=== PATIENT | female | born 2000 | race Caucasian/White ===

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

== ENCOUNTER 2022-06-13 13:34 | Emergency (ER) | payer OTHER, SELFPAY ==
--- NOTE | ~2022-06-13 | XR_ITS ---
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 Evaluate for foreign body. TECHNIQUE: 4 views COMPARISON: None FINDINGS: There is soft tissue bandage overlying the mid third digit. No radiopaque soft tissue forei gn body is detected. No fracture or dislocation, periosteal reaction or bone destruction. IMPRESSION: No fracture or dislocation or radiopaque foreign body Reviewed, dictated and finalized at location A.
[2022-06-13 14:05] VITALS: BP 134/66; PULSE 78; RESP 16; TEMP 36.4; O2SAT 99
--- NOTE | 2022-06-13 15:33 | ED.WOUNDLAC ---
HPI - Wound/Laceration General Chief Complaint: Wound/Laceration <AMY Agustin Last Filed: 06/13/22 17:37> Stated Complaint: L THIRD DIGIT LACERATION <AMY Agustin Last Filed: 06/13/22 17:37> Time Seen by Provider: 06/13/22 14:18 <AMY Agustin Last Filed: 06/13/22 17:37> Source: patient <AMY Agustin Last Filed: 06/13/22 17:37> Mode of arrival: ambulatory <AMY Agustin Last Filed: 06/13/22 17:37> Limitations: no limitations <AMY Agustin Last Filed: 06/13/22 17:37> History of Present Illness HPI narrative: Patient is a 21-year-old female who presents the ED with report of a laceration to her left third digit. 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 No other injuries. Bleeding controlled by the time of my evaluation. No numbness, tingling. Good range of motion of finger. Tetanus status up-to-date. <AMY Agustin Last Filed: 06/13/22 17:37> Related Data Allergies/Adverse Reactions: Allergies Allergy/AdvReac Type Severity Reaction Status Date / Time No Known Allergies Allergy Verified 06/13/22 15:14 <Lisy Atwood PA-C - Last Filed: 06/13/22 17:37> Review of Systems Review of Systems: CONSTITUTIONAL: Denies fever, chills, or sweats. SKIN: Reports laceration to left third digit. MUSCULOSKELETAL: Reports pain to left third digit. NEUROLOGIC: Denies tingling, numbness, or weakness. <AMY Agustin Last Filed: 06/13/22 17:37> CONSTITUTIONAL: Denies night sweats. EYES: No eye pain ENT: Denies rhinorrhea CARDIOVASCULAR: Denies palpitations RESPIRATORY: Denies hemoptysis GASTROINTESTINAL: Denies hematemesis GENITOURINARY: Denies hematuria. SKIN: Denies rash MUSCULOSKELETAL: Denies myalgia. NEUROLOGIC: Denies weakness. PSYCHIATRIC: Denies delusions <Héctor Kennedy MD - Last Filed: 06/19/22 07:44> All systems reviewed & are unremarkable except as noted in HPI and below <Lisy Atwood PA-C - Last Filed: 06/13/22 17:37> [facility] Past Medical History Medical History: Medical History (Updated 06/14/22 @ 00:00 by Desmond Daemlatrell) No pertinent past medical history <Lisy Atwood PA-C - Last Filed: 06/13/22 17:37> Surgical History Surgical History: Surgical History (Updated 06/13/22 @ 15:34 by Lisy Atwood PA-C) No pertinent past surgical history <Lisy Atwood PA-C - Last Filed: 06/13/22 17:37> Social History Social History: Social History (Updated 06/13/22 @ 15:34 by Lisy Atwood PA-C) Smoking status: Never smoker <Lisy Atwood PA-C - Last Filed: 06/13/22 17:37> Exam Narrative: GENERAL: Well appearing, obese, non-toxic, in no acute distress. HEAD: Normocephalic, atraumatic. NECK: Supple. No adenopathy, no masses. RESPIRATORY: Airway patent, respirations nonlabored. Clear to auscultation bilaterally, no rales, rhonchi, wheezing. CARDIOVASCULAR: Regular rate and rhythm without murmurs, rubs, or gallops. Radial pulses 2+ and equal bilaterally. MUSCULOSKELETAL: Moves all extremities. Strength/ROM intact without gross deformities. Sharp sensation intact to distal finger. SKIN: Warm, dry, normal color. No rashes. 1.5 cm laceration to extensor surface of left third digit, just distal to PIP joint. Bleeding controlled. NEURO: A&O X3. Speech clear. Cranial nerves II-XII grossly intact. Steady gait. No ataxic movements. PSYCHIATRIC: Appropriate mood and affect. Normal interaction. 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 I have had [id number] time with the patient. Patient presented with a minor l
--- NOTE | 2022-06-13 15:47 | PC.NURSE ---
ERPA at bedside for laceration repair.
[2022-06-13] MEDS: LIDOCAINE HCL 1% PF 30 ML VIAL 5 ML INFILTRATE (16:20)
== END 2022-06-13 16:50 | disposition home or self-care (01) ==
PROVIDERS: Emergency Provider Emergency Medicine
DX: S61.213A Laceration without foreign body of left middle finger without damage to nail, initial encounter (principal); W27.8XXA Contact with other nonpowered hand tool, initial encounter
CPT/HCPCS: 12001; 73140; 99283

== ENCOUNTER 2022-06-23 10:41 | Emergency (ER) | payer OTHER, SELFPAY ==
[2022-06-23 10:48] VITALS: BP 128/71; PULSE 86; RESP 16; TEMP 37.1; O2SAT 99
--- NOTE | 2022-06-23 10:56 | ED.WOUNDLAC ---
HPI - Wound/Laceration General Chief Complaint: Wound/Laceration Stated Complaint: stitches removal Time Seen by Provider: 06/23/22 10:44 Source: patient Mode of arrival: ambulatory Limitations: no limitations History of Present Illness HPI narrative: Mg is a 21-year-old female patient presenting to the clinic today for a suture removal. She has a well-healed laceration to the left 3rd finger. 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 She denies any pain or discomfort. She denies any fever Related Data Allergies Allergy/AdvReac Type Severity Reaction Status Date / Time No Known Allergies Allergy Verified 06/13/22 15:14 Review of Systems Review of Systems: Pertinent positives per HPI. Patient denies any fever, chills, rash, headache, visual changes, dizziness, cough, runny nose, sore throat, shortness of breath, chest pain, palpitations, nausea, vomiting, diarrhea, constipation, abdominal pain, or any urinary issues. PMFSH Past Medical History Medical History No pertinent past medical history Surgical History Surgical History No pertinent past surgical history Social History Social History Smoking status: Never smoker Comments At the time of my signature, I reviewed and agree with the nursing past medical, surgical, social, and family history. There is no relevant family history pertinent to the patient complaint. Exam Narrative: General: Well-developed, well nourished, in no apparent distress Head: Normocephalic, atraumatic. Cardio: Regular rate and rhythm, s1 and s2 normal, no murmur appreciated. Resp: Clear to auscultation bilaterally, no rhonchi, rales, wheezing or rubs. Integumentary: [place], warm, and dry, well-healed wound to the left dorsal 3rd finger just above the PIP joint. Three interrupted sutures removed and patient tolerated procedure well Course Course Emergency Course: Portions of this record may have been created with voice recognition software. Level of Care: Express Care Visit Vital Signs Vital signs: Vital Signs Temperature 37.1 C 06/23/22 10:48 Pulse Rate 86 06/23/22 10:48 Respiratory Rate 16 06/23/22 10:48 Blood Pressure 128/71 06/23/22 10:48 Pulse Oximetry 99 06/23/22 10:48 Oxygen Delivery Room Air 06/23/22 10:48 Temperature 37.1 C 06/23/22 10:48 Pulse Rate 86 06/23/22 10:48 Respiratory Rate 16 06/23/22 10:48 Blood Pressure 128/71 06/23/22 10:48 Pulse Oximetry 99 06/23/22 10:48 Oxygen Delivery Room Air 06/23/22 10:48 Vital signs reviewed Procedures Other Procedure Procedure 1: Other Procedure: well-healed wound to the left dorsal 3rd finger. Three interrupted sutures were removed using a pair of forceps and scissors. ARMANI applied after suture removal. patient tolerated procedure well MDM - Wound/Laceration MDM Narrative Medical decision making narrative: at the time of visit patient is resting comfortably on exam table. Three interrupted sutures were removed in the clinic today. No concerns. Supportive measures were discussed with the patient she voiced understanding of discharge instructions Differential Diagnosis Differential diagnosis: Likely other ( suture removal) Discharge Plan Discharge Clinical Impression: Encounter for removal of sutures Patient Disposition: Home, Self-Care Condition: Stable Instructions: Antibiotic Form, Stitches Removal (ED) Additional Instructions: Keep area clean and dry 3 sutures removed in the clinic today Follow-up with your PCP as needed Follow-up/Referrals: UNKNOWN,DOCTOR [Primary Care Provider] - Time of Disposition: 11:00 Quality NIHSS Nursing Documentation ED NIHSS nursing documentation: reviewed/agree
--- NOTE | 2022-06-23 10:57 | PC.NURSE ---
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
== END 2022-06-23 11:02 | disposition home or self-care (01) ==
PROVIDERS: Emergency Provider Nurse Practitioner Family
DX: S61.213D Laceration without foreign body of left middle finger without damage to nail, subsequent encounter (principal); W26.8XXD Contact with other sharp object(s), not elsewhere classified, subsequent encounter
CPT/HCPCS: 99211; G0463

== ENCOUNTER 2023-02-05 12:01 | Emergency (ER) | payer BC, OTHER, SELFPAY ==
--- NOTE | ~2023-02-05 | XR_ITS ---
XR ankle LT min 3V DATE: 02/05/2023 13:23 INDICATION: Twisted foot stepping in hole. Lateral ankle pain. TECHNIQUE: 4 views COMPARISON: None FINDINGS: There is mild lateral soft tissue swelling. No fracture or dislocation of the ankle or disr uption of the ankle mortise is detected. IMPRESSION: Mild lateral soft tissue swelling Reviewed, dictated and finalized at location A.
[2023-02-05 12:51] VITALS: BP 144/80; PULSE 74; RESP 16; TEMP 36.8; O2SAT 100
--- NOTE | 2023-02-05 13:16 | ED.LOWEXIN ---
HPI - Extremity Injury (Lower) General Chief Complaint: Extremity Injury, Lower Stated Complaint: pain in left foot Time Seen by Provider: 02/05/23 13:12 Source: patient and RN notes reviewed Mode of arrival: ambulatory Limitations: no limitations History of Present Illness HPI Narrative: Patient presents today complaining of a left ankle pain. Yesterday she tripped and twisted her ankle. Denies numbness or tingling in the leg or foot. She is pain-free at rest, but this increases to 5/10 with weight-bearing. She has been taking Tylenol and ibuprofen without relief. Related Data Allergies Allergy/AdvReac Type Severity Reaction Status Date / Time amoxicillin [From Augmentin] Allergy Mild Rash Verified 02/05/23 12:46 clavulanic acid Allergy Mild Rash Verified 02/05/23 12:46 [From Augmentin] Review of Systems Review of Systems: CONSTITUTIONAL: Denies body aches, fever, chills, or sweats. EYES: Denies visual changes, redness, or discharge. ENT: Denies rhinorrhea, congestion, sore throat, or otalgia. CARDIOVASCULAR: Denies chest pain, palpitations, or edema. RESPIRATORY: Denies cough or dyspnea. GASTROINTESTINAL: Denies abdominal pain, nausea, vomiting, or diarrhea. GENITOURINARY: Denies dysuria or hematuria. SKIN: Denies rash, itching, or wounds. MUSCULOSKELETAL: Denies back pain, or myalgia.+ left ankle pain NEUROLOGIC: Denies headache, numbness, tingling, or weakness. PSYCH: Denies depression or anxiety. PMFSH Past Medical History Medical History No pertinent past medical history Surgical History Surgical History No pertinent past surgical history Social History Social History Smoking status: Never smoker Comments At time of signature, I have reviewed and agree with nursing past medical, surgical, social and family history unless otherwise noted. Please see nursing chart for further information. There is no relevant family history pertinent to the presenting complaint Exam Narrative: GENERAL: Well-appearing, well-nourished, and in no acute distress. HEAD: Normocephalic, atraumatic. EYES: EOMI. No redness or drainage. Conjunctivae normal. ENT: Mucous membranes pink and moist. NECK: Normal AROM. CHEST: No respiratory distress. EXTREMITIES: Left ankle: Tenderness to the lateral malleolus and the soft tissue surrounding with mild edema. No tenderness medially or anteriorly. No tenderness to the foot. Distal sensation intact. Capillary refill normal. Pedal pulse normal. Color normal. Full range of motion of the toes without pain. Pain with extension and internal and external rotation of the ankle.. SKIN: Warm, dry, no rash. Capillary refill normal. Normal skin turgor. NEURO: No focal deficits. Alert and oriented x3. Gait steady. PSYCH: Normal affect. No signs of depression or anxiety. Course Course Level of Care: Express Care Visit Vital Signs Vital signs: Vital Signs Temperature 98.3 F 02/05/23 12:51 Pulse Rate 74 02/05/23 12:51 Respiratory Rate 16 02/05/23 12:51 Blood Pressure 144/80 H 02/05/23 12:51 Pulse Oximetry 100 02/05/23 12:51 Oxygen Delivery Room Air 02/05/23 12:51 Temperature 98.3 F 02/05/23 12:51 Pulse Rate 74 02/05/23 12:51 Respiratory Rate 16 02/05/23 12:51 Blood Pressure 144/80 H 02/05/23 12:51 Pulse Oximetry 100 02/05/23 12:51 Oxygen Delivery Room Air 02/05/23 12:51 Reviewed. Pt has been instructed to follow up with her PCP regarding her elevated blood pressure today. MDM - Extremity Injury (Lower) MDM Narrative Medical decision making narrative: X-rays negative for fracture. No prescription medications indicated at this time. Anticipatory guidance given. Differential Diagnosis Differential diagnosis: Likely ankle sprain and stra
== END 2023-02-05 14:00 | disposition home or self-care (01) ==
PROVIDERS: Emergency Provider Nurse Practitioner
DX: S93.402A Sprain of unspecified ligament of left ankle, initial encounter (principal); X50.9XXA Other and unspecified overexertion or strenuous movements or postures, initial encounter
CPT/HCPCS: 73610; 99213; G0463

== ENCOUNTER 2023-10-04 13:12 | Emergency (ER) | payer OTHER, SELFPAY ==
[2023-10-04 13:25] VITALS: BP 149/75; PULSE 84; RESP 16; TEMP 37.1; O2SAT 100
--- NOTE | 2023-10-04 13:50 | ED.GENADULT ---
HPI - General Adult General Chief complaint: Urogenital-Female Stated complaint: UTI Source: patient, RN notes reviewed and old records reviewed Mode of arrival: ambulatory Limitations: no limitations History of Present Illness HPI narrative: 22-year-old female presents to [facility] with complaints burning with urination, frequency, urgency, hematuria, lower abdominal pain, back pain this started yesterday. Patient denies fevers, vomiting, or any other symptoms. Related Data Allergies Allergy/AdvReac Type Severity Reaction Status Date / Time amoxicillin [From Augmentin] Allergy Mild Rash Verified 10/04/23 13:45 clavulanic acid Allergy Mild Rash Verified 10/04/23 13:45 [From Augmentin] Review of Systems Constitutional: Constitutional: Reports no additional constitutional complaints, Denies body ache(s), Denies chills, Denies fatigue, Denies fever(s) and Denies headache(s) Eyes: Eyes: Reports no additional eye complaints and Denies blurry vision ENT: Reports system reviewed and no additional complaints, except as documented, Denies vertigo, Denies dizziness, Denies ear discharge, Denies otalgia, Denies facial pain, Denies headache(s), Denies nasal congestion, Denies nasal discharge, Denies sinus pain, Denies sinus pressure and Denies sore throat Cardiovascular: Cardiovascular: Reports no additional cardiovascular complaints, Denies chest pain, Denies chest pain at rest, Denies rapid heart rate and Denies dyspnea Respiratory: Respiratory: Reports no additional respiratory complaints, Denies chest congestion, Denies cough, Denies pain on inspiration, Denies pain with cough and Denies dyspnea Gastrointestinal: Gastrointestinal: Reports abdominal pain, Denies diarrhea, Denies nausea and Denies vomiting Genitourinary: Genitourinary: Reports as per HPI, Reports nocturia, Reports dysuria and Reports urinary urgency Musculoskeletal: Musculoskeletal: Reports back pain Integumentary/Breasts: Skin/Breast: Denies rash Neurologic: Reports system reviewed and no additional complaints, except as documented, Denies vertigo, Denies dizziness and Denies headache(s) Endocrine: Endocrine: Denies fatigue PMF Past Medical History Medical History No pertinent past medical history Surgical History Surgical History No pertinent past surgical history Family History Family History Mother Diabetes mellitus Acute myocardial infarction Grandparent Cerebrovascular accident Other Cancer Hypertension Social History Social History Smoking status: Never smoker Alcohol intake: never Substance use type: does not use Lack of Transportation: No Lack of Food: Never True Current Housing: I Have Housing Concerned About Future Housing: No Difficulty Paying Gas/Electric Bills: No Difficulty Paying for Meds: No Currently Unemployed: No Education: High School Diploma/GED Difficulty w/ Childcare or Family Care: No Living arrangements: with family 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 There is no relevant family history pertinent to the patient complaint. Exam Const: General: cooperative, healthy appearing, no acute distress and well nourished Nutritional Appearance: well nourished Orientation/consciousness: patient oriented x3 Limitations: no limitations HENMT: Head: normal to inspection and normocephalic Ears: EAC's normal and mastoids normal Face/Nose/Sinus: normal facial exam Face and sinus: normal facial exam Mouth: Yes Normal oral and palatal mucosa present, Yes oropharynx normal and Yes
== END 2023-10-04 13:56 | disposition home or self-care (01) ==
PROVIDERS: Emergency Provider Registered Nurse
DX: N30.01 Acute cystitis with hematuria (principal); B96.20 Unspecified Escherichia coli [E. coli] as the cause of diseases classified elsewhere
CPT/HCPCS: 81003; 81025; 87077; 87086; 87186; 99213; G0463

== ENCOUNTER 2023-12-03 16:49 | Emergency (ER) | payer OTHER, SELFPAY ==
--- NOTE | 2023-12-03 17:06 | ED.FEMALEGU ---
HPI - Female Genitourinary General Chief complaint: Urogenital-Female Stated complaint: urinary issue Time Seen by Provider: 12/03/23 17:10 Source: patient and RN notes reviewed Mode of arrival: ambulatory Limitations: no limitations History of Present Illness HPI Narrative: 22-year-old female presented for complaint of burning with urination, frequency and urgency over the past 2 days. Denies hematuria, nausea, vomiting, abdominal pain, flank pain, constipation, diarrhea, fevers or chills. LMP 08/2023, however she reports irregular cycles, adamantly denies concern for or STD. Related Data Allergies Allergy/AdvReac Type Severity Reaction Status Date / Time amoxicillin [From Augmentin] Allergy Mild Rash Verified 12/03/23 16:53 clavulanic acid Allergy Mild Rash Verified 12/03/23 16:53 [From Augmentin] Review of Systems Review of Systems: CONSTITUTIONAL: Denies body aches, fever, chills, or sweats. CARDIOVASCULAR: Denies chest pain, palpitations, or edema. RESPIRATORY: Denies cough or dyspnea. GASTROINTESTINAL: Denies abdominal pain, nausea, vomiting, or diarrhea. GENITOURINARY: Reports dysuria, frequency, urgency, Denies hematuria, flank pain SKIN: Denies rash, itching, or wounds. MUSCULOSKELETAL: Denies back pain or myalgia. [facility] Past Medical History Medical History No pertinent past medical history Surgical History Surgical History No pertinent past surgical history Family History Family History Mother Diabetes mellitus Acute myocardial infarction Grandparent Cerebrovascular accident Other Cancer Hypertension Social History Social History Smoking status: Never smoker Alcohol intake: never Substance use type: does not use Lack of Transportation: No Lack of Food: Never True Current Housing: I Have Housing Concerned About Future Housing: No Difficulty Paying Gas/Electric Bills: No Difficulty Paying for Meds: No Currently Unemployed: No Education: High School Diploma/GED Difficulty w/ Childcare or Family Care: No Living arrangements: with family 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 Please see nursing chart for further information. There is no relevant family history pertinent to the presenting complaint Exam Narrative: GENERAL: Well-appearing ENT: Mucous membranes pink and moist. NECK: Normal AROM. Supple. CHEST: No respiratory distress. Clear to auscultation. HEART: Regular rate and rhythm. ABDOMEN: Soft, nontender, nondistended, normal active bowel sounds. No CVA tenderness SKIN: Warm, dry, no rash. NEURO: No focal deficits. Alert and oriented x3. Gait steady. PSYCH: Normal affect. Course Course Emergency Course: Patient is aware of diagnosis, understands and agrees to treatment plan. Anticipatory guidance given. Patient agrees to follow-up as directed and is aware of reasons to seek care at the emergency department. Portions of this record may have been created with voice recognition software Level of Care: Express Care Visit Vital Signs Vital signs: Reviewed MDM - Female Genitourinary MDM Narrative Medical decision making narrative: Discussed physical exam findings And urine dip results. Advised supportive measures and signs/symptoms to go to the ER. Pt is appropriate for outpt treatment and f/u. Differential Diagnosis Differential diagnosis: Likely urinary tract infection, bacterial vaginosis, vaginitis and cystitis Discharge Plan Discharge Clinical Impression: Dysuria Patient Dispo
[2023-12-03 17:07] VITALS: BP 141/59; PULSE 70; RESP 16; TEMP 36.9; O2SAT 100
--- NOTE | 2023-12-07 13:42 | PC.NURSE ---
PT CALLED CLINIC AND REPORTS SINCE 8 AM TODAY PT HAS HAD ABD PAIN THAT MOVES INTO THE CHEST AREA. PT ASKING IF THIS IS A SIDE EFFECT OF MACROBID. PT SEEN HERE ON 12/03/23 AND HAD A URINE CULTURE WHICH HAD NO GROWTH. PT ADVISED OF LAB RESULTS AND REFERRED TO ER. PT DOES NOT HAVE A PMD. CARRIE LIU RN.
== END 2023-12-03 17:20 | disposition home or self-care (01) ==
PROVIDERS: Emergency Provider Nurse Practitioner Family
DX: R30.0 Dysuria (principal)
CPT/HCPCS: 81003; 87086; 99213; G0463

== ENCOUNTER 2024-04-25 18:15 | Emergency (ER) | payer OTHER, SELFPAY ==
--- NOTE | 2024-04-25 18:20 | ED.WOUNDLAC ---
HPI - Wound/Laceration General Chief Complaint: Wound/Laceration Stated Complaint: left index finger cut Time Seen by Provider: 04/25/24 18:20 Source: patient Mode of arrival: ambulatory Limitations: no limitations History of Present Illness HPI narrative: Chau is a 23-year-old female patient presenting to the clinic today with complaints of a cut to her left index finger. She reports this occurred just prior to arrival. 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 She reports that there was some environmental waist on a slide and exploded and cut her finger. She denies any foreign body in her finger but has a 1.5 cm lack to the volar aspect of the left index finger. Bleeding is controlled. Tetanus is unknown. Related Data Allergies Allergy/AdvReac Type Severity Reaction Status Date / Time amoxicillin [From Augmentin] Allergy Mild Rash Verified 12/03/23 16:53 clavulanic acid Allergy Mild Rash Verified 12/03/23 16:53 [From Augmentin] Review of Systems Review of Systems: Pertinent positives per HPI. Patient denies any fever, chills, rash, headache, visual changes, dizziness, cough, runny nose, sore throat, shortness of breath, chest pain, palpitations, nausea, vomiting, diarrhea, constipation, abdominal pain, or any urinary issues. [facility] Past Medical History Medical History No pertinent past medical history Surgical History Surgical History No pertinent past surgical history Family History Family History Mother Diabetes mellitus Acute myocardial infarction Grandparent Cerebrovascular accident Other Cancer Hypertension Social History Social History Smoking status: Never smoker Alcohol intake: never Substance use type: does not use Lack of Transportation: No Lack of Food: Never True Current Housing: I Have Housing Concerned About Future Housing: No Difficulty Paying Gas/Electric Bills: No Difficulty Paying for Meds: No Currently Unemployed: No Education: High School Diploma/GED Difficulty w/ Childcare or Family Care: No Living arrangements: with family 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 There is no relevant family history pertinent to the patient complaint. Exam Narrative: General: Well-developed, well nourished, in no apparent distress Head: Normocephalic, atraumatic. Cardio: Regular rate and rhythm, s1 and s2 normal, no murmur appreciated. Resp: Clear to auscultation bilaterally, no rhonchi, rales, wheezing or rubs. Integumentary: [place], warm, and dry, 1.5 cm laceration to the volar aspect of the distal left index finger, mild gaping, bleeding controlled Course Course Emergency Course: Portions of this record may have been created with voice recognition software. Level of Care: Express Care Visit Vital Signs Vital signs: Vital Signs Temperature 36.8 C 04/25/24 18:31 Pulse Rate 91 04/25/24 18:31 Respiratory Rate 15 04/25/24 18:31 Blood Pressure 142/89 H 04/25/24 18:31 Pulse Oximetry 99 04/25/24 18:31 Oxygen Delivery Room Air 04/25/24 18:31 Temperature 36.8 C 04/25/24 18:31 Pulse Rate 91 04/25/24 18:31 Respiratory Rate 15 04/25/24 18:31 Blood Pressure 142/89 H 04/25/24 18:31 Pulse Oximetry 99 04/25/24 18:31 Oxygen Delivery Room Air 04/25/24 18:31 Vital signs reviewed Procedures Laceration Laceration 1: Date: 04/25/24 Site: hand (Left index finger) Side (If applicable): left Size (cm): 1.5 Description: linear Depth: simple, sin
[2024-04-25 18:31] VITALS: BP 142/89; PULSE 91; RESP 15; TEMP 36.8; O2SAT 99
[2024-04-25] MEDS: TETANUS,DIPHTHERIA,AC PERTUSSIS ADULT (0.5 ML) BOOSTRIX IM (18:58)
== END 2024-04-25 19:22 | disposition home or self-care (01) ==
PROVIDERS: Emergency Provider Nurse Practitioner Family
DX: S61.211A Laceration without foreign body of left index finger without damage to nail, initial encounter (principal); W45.8XXA Other foreign body or object entering through skin, initial encounter; Y99.0 Civilian activity done for income or pay; Z23 Encounter for immunization
CPT/HCPCS: 12001; 90471; 90715; 99213; G0463

== ENCOUNTER 2024-05-02 09:57 | Emergency (ER) | payer OTHER, SELFPAY ==
[2024-05-02 10:02] VITALS: BP 127/67; PULSE 66; RESP 19; TEMP 36.4; O2SAT 100
--- NOTE | 2024-05-02 10:40 | ED.GENADULT ---
HPI - General Adult General Chief complaint: Wound/Laceration Stated complaint: Stitches Removal Time Seen by Provider: 05/02/24 10:32 Source: patient, RN notes reviewed and old records reviewed Mode of arrival: ambulatory Limitations: no limitations History of Present Illness HPI narrative: 23-year-old female presents to the [facility] to have sutures removed that were placed 1 week ago. Distal left index finger No redness, has been keeping it covered. No swelling. Related Data Home Medications Medication Instructions Recorded Confirmed No Home Medications 05/02/24 05/02/24 Allergies Allergy/AdvReac Type Severity Reaction Status Date / Time amoxicillin [From Augmentin] Allergy Mild Rash Verified 05/02/24 10:11 clavulanic acid Allergy Mild Rash Verified 05/02/24 10:11 [From Augmentin] Review of Systems Review of Systems: All systems reviewed & are unremarkable except as noted in HPI and below Constitutional: Constitutional: Reports no additional constitutional complaints Eyes: Eyes: Reports no additional eye complaints ENT: Reports system reviewed and no additional complaints, except as documented Cardiovascular: Cardiovascular: Reports no additional cardiovascular complaints, Denies chest pain and Denies dyspnea Respiratory: Respiratory: Reports no additional respiratory complaints, Denies chest congestion, Denies cough and Denies dyspnea Gastrointestinal: Gastrointestinal: Reports no additional gastrointestinal complaints, Denies abdominal pain, Denies nausea and Denies vomiting Musculoskeletal: Musculoskeletal: Reports no additional musculoskeletal complaints Integumentary/Breasts: Skin/Breast: Reports as per HPI Neurologic: Reports system reviewed and no additional complaints, except as documented Psychiatric: Psychiatric: Reports no additional psychiatric complaints Allergic/Immunologic: Allergic/Immunologic: Reports no additional allergic/immunologic complaints [facility] Past Medical History Medical History No pertinent past medical history Surgical History Surgical History No pertinent past surgical history Family History Family History Mother Diabetes mellitus Acute myocardial infarction Grandparent Cerebrovascular accident Other Cancer Hypertension Social History Social History Smoking status: Never smoker Alcohol intake: never Substance use type: does not use Lack of Transportation: No Lack of Food: Never True Current Housing: I Have Housing Concerned About Future Housing: No Difficulty Paying Gas/Electric Bills: No Difficulty Paying for Meds: No Currently Unemployed: No Education: High School Diploma/GED Difficulty w/ Childcare or Family Care: No Living arrangements: with family 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 There is no relevant family history pertinent to the patient complaint. Exam Const: General: cooperative, healthy appearing, comfortable, no acute distress, well developed, alert and well nourished Nutritional Appearance: well nourished Orientation/consciousness: patient oriented x3 Limitations: no limitations HENMT: Head: normal to inspection Ears: hearing grossly normal bilaterally and external ears normal Face/Nose/Sinus: Normal external nose present, Normal nares present, Normal nasal mucous membranes and turbinates present, normal facial exam and face symmetric Face and sinus: normal facial exam and face symmetric Eyes: General: appearance normal, both eyes and all related structures Alignment and Position: align
== END 2024-05-02 10:48 | disposition home or self-care (01) ==
PROVIDERS: Emergency Provider Nurse Practitioner
DX: S61.211D Laceration without foreign body of left index finger without damage to nail, subsequent encounter (principal); X58.XXXD Exposure to other specified factors, subsequent encounter
CPT/HCPCS: 99211; G0463

== ENCOUNTER 2024-05-06 18:27 | Emergency (ER) | payer OTHER, SELFPAY ==
[2024-05-06 18:36] VITALS: BP 140/69; PULSE 72; RESP 18; TEMP 36.5; O2SAT 100
--- NOTE | 2024-05-06 18:39 | ED.WOUNDLAC ---
HPI - Wound/Laceration General Chief Complaint: Wound/Laceration Stated Complaint: Stitches Removal Time Seen by Provider: 05/06/24 18:39 Source: patient, RN notes reviewed and old records reviewed Mode of arrival: ambulatory Limitations: no limitations History of Present Illness HPI narrative: Patient presents with request for suture removal to left index finger. No complaints Related Data Home Medications Medication Instructions Recorded Confirmed No Home Medications 05/02/24 05/06/24 Allergies Allergy/AdvReac Type Severity Reaction Status Date / Time amoxicillin [From Augmentin] Allergy Mild Rash Verified 05/06/24 18:35 clavulanic acid Allergy Mild Rash Verified 05/06/24 18:35 [From Augmentin] Review of Systems Review of Systems: All systems reviewed & are unremarkable except as noted in HPI and below Constitutional: Constitutional: Reports no additional constitutional complaints ENT: Reports system reviewed and no additional complaints, except as documented Cardiovascular: Cardiovascular: Reports no additional cardiovascular complaints Respiratory: Respiratory: Reports no additional respiratory complaints Gastrointestinal: Gastrointestinal: Reports no additional gastrointestinal complaints Integumentary/Breasts: Skin/Breast: Reports system reviewed and no additional complaints, except as docu and Reports as per HPI [facility] Past Medical History Medical History No pertinent past medical history Surgical History Surgical History No pertinent past surgical history Family History Family History Mother Diabetes mellitus Acute myocardial infarction Grandparent Cerebrovascular accident Other Cancer Hypertension Social History Social History Smoking status: Never smoker Alcohol intake: never Substance use type: does not use Lack of Transportation: No Lack of Food: Never True Current Housing: I Have Housing Concerned About Future Housing: No Difficulty Paying Gas/Electric Bills: No Difficulty Paying for Meds: No Currently Unemployed: No Education: High School Diploma/GED Difficulty w/ Childcare or Family Care: No Living arrangements: with family 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 There is no relevant family history pertinent to the patient complaint. Exam Const: General: cooperative, no acute distress, alert and awake Orientation/consciousness: oriented to person, oriented to place and oriented to time HENMT: Head: normal to inspection Resp: Effort & Inspection: normal respiratory effort and able to speak in complete sentences Auscultation: clear to auscultation bilaterally, no crackles, no rales, no rhonchi and no wheezes Cardio: Palpation: normal PMI Rate: regular rate Rhythm: regular rhythm Heart sounds: S1 normal heart sound present and S2 normal heart sound present Skin: Other: [address] to left index finger, wound well healed with no sign of infection Neuro: General: oriented to person, oriented to place and oriented to time Cranial nerves: Yes CN's II-XII intact bilaterally Psych: Appearance: grossly normal Thought process: Normal thought process present Insight: Good insight present (Psych) Judgement: Good judgement present (Psych) Course Course Level of Care: Express Care Visit Vital Signs Vital signs: Vital Signs Temperature 97.7 F 05/06/24 18:36 Pulse Rate 72 05/06/24 18:36 Respiratory Rate 18 05/06/24 18:36 Blood Pressure 140/69 05/06/24 18:36 Pulse Oximetry 100 05/06/24 18:36 Oxyg
== END 2024-05-06 18:53 | disposition home or self-care (01) ==
PROVIDERS: Emergency Provider Nurse Practitioner Family
DX: S61.211D Laceration without foreign body of left index finger without damage to nail, subsequent encounter (principal); X58.XXXD Exposure to other specified factors, subsequent encounter
CPT/HCPCS: 99211; G0463

== ENCOUNTER 2024-09-17 13:59 | Emergency (ER) | payer OTHER, SELFPAY ==
[2024-09-17 14:14] VITALS: BP 134/70; PULSE 84; RESP 16; TEMP 36.7; O2SAT 100
--- NOTE | 2024-09-17 14:37 | ED_ITS ---
HPI - URI/Sore Throat General Chief Complaint: Upper Respiratory Infection Stated Complaint: congestion, CULP, cough Time Seen by Provider: 09/17/24 14:50 Source: patient and RN notes reviewed Mode of arrival: ambulatory Limitations: no limitations History of Present Illness HPI Narrative: For 3-year-old female presents with concern for 5-6 day history of nasal congestion and drainage, dry hacking cough, headache, body aches. She reports she has not taken any [id number] medications. She denies fevers. She denies sore throat MD elicited complaint: cough and nasal congestion Related Data Allergies Allergy/AdvReac Type Severity Reaction Status Date / Time amoxicillin (From Augmentin) Allergy Mild Rash Verified 09/17/24 14:19 clavulanic acid (From Allergy Mild Rash Verified 09/17/24 14:19 Augmentin) Review of Systems Review of Systems: CONSTITUTIONAL: Denies malaise, chills, sweats, or fever. EYES: Denies visual changes, redness, or discharge. ENT: Reports rhinorrhea, congestion. Denies sinus pain, otalgia and sore throat. CARDIOVASCULAR: Denies chest pain, palpitations, or edema. RESPIRATORY: Reports cough. Denies dyspnea. GASTROINTESTINAL: Denies abdominal pain, nausea, vomiting, diarrhea SKIN: Denies rash or itching. MUSCULOSKELETAL: Reports myalgia. NEUROLOGIC: Reports headache. All systems reviewed & are unremarkable except as noted in HPI and below PMFSH Past Medical History Medical History No pertinent past medical history Surgical History Surgical History No pertinent past surgical history Family History Family History Mother Diabetes mellitus Acute myocardial infarction Grandparent Cerebrovascular accident Other Cancer Hypertension Social History Social History Smoking status: Never smoker Alcohol intake: never Substance use type: does not use Lack of Transportation: No Lack of Food: Never True Current Housing: I Have Housing Concerned About Future Housing: No Difficulty Paying Gas/Electric Bills: No Difficulty Paying for Meds: No Currently Unemployed: No Education: High School Diploma/GED Difficulty w/ Childcare or Family Care: No Living arrangements: with family 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 There is no relevant family history pertinent to the presenting complaint Exam Narrative: GENERAL: Well-appearing, well-nourished, and in no acute distress. HEAD: Normocephalic EYES: PERRLA, conjunctivae clear ENT: Nares clear. Mucous membranes moist. TM pearly couch with sharp light reflex bilaterally; no tragal tenderness. Oropharynx not erythematous without lesions. Tonsils not enlarged and without exudate, no drooling, no hoarseness, no trismus, uvula midline. NECK: Supple. No lymphadenopathy CHEST: Clear to auscultation, breath sounds equal. No wheezing, rhonchi, rales, or stridor. No respiratory distress, speaks in full sentences. Cough noted HEART: Regular rate and rhythm. No murmur heard. SKIN: Warm, dry, no rash. NEURO: Alert and oriented x3. PSYCH: Normal mood and affect Course Course Emergency Course: Patient is aware of diagnosis, understands and agrees to treatment plan. Anticipatory guidance given. Patient agrees to follow-up as directed and is aware of reasons to seek care at the emergency department. Portions of this record may have been created with voice recognition software Level of Care: Express Care Visit Vital Signs Vital signs: Vital Signs Temperature 98.0 F 09/17/24 14:14 Pulse Rate 84 09/17/24 14:14 Respiratory Rate 16 09/17/24 14:14 Blood Pressure 134/70 09/17/24 14:14 Pulse Oximetry 100 09/17/24 14:14 Oxygen Delivery Room Air 09/17/24 14:14 Temperature 98.0 F 09/17/24 14:14 Pulse Rate 84 09/17/24 14:14 Respiratory Rate 16 09/17/24 14:14 Blood Pressure 134/70 09/17/24 14:14 Pulse Oximetry 100 09/17/24 14:14 Oxygen Delivery Room Air 09/17/24 14:14 Reviewed. MDM - URI/Sore Throat MDM Narrative Medical decision making narrative: Differential diagnosis considered: Lanier virus, strep pharyngitis, allergic rhinitis, upper respiratory tract infection, sinusitis, rhinosinusitis, nasopharyngitis. viral pharyngitis, otitis media, otitis externa, pneumonia, bronchitis, viral cough syndrome, viral syndrome, and influenza. Exam findings show no acute concerns or changes; patient is non-toxic appearing and is in no distress. Patient is appropriate for outpatient treatment and follow-up. Lab Data Attestation: I reviewed the patient's lab results. Critical Care Time Critical Care Time Critical Care Time: No Discharge Plan Discharge Clinical Impression: Bronchitis Patient Disposition: Home, Self-Care Condition: Stable Instructions: Acute Bronchitis (ED) Additional Instructions: Viral illness may last between 7-21 days; antibiotics do not cure viral illness and are NOT recommended at this time. Recommend antihistamine such as Benadryl at night time and Zyrtec or Tianna during the day Also, recommend symptomatic treatment includes: rest, fluids, and increase humidity of the air at home. Recommend Acetaminophen as directed on the bottle to reduce fever, pain, headache. Avoid smoking/second-hand smoke. Please schedule a follow-up visit with your personal physician for further evaluation and treatment within 3-5days. If your symptoms persist, change or worsen significantly before you can contact your personal physician then please, without delay, go to the emergency department for further evaluation. Patient Language: [place] Verdean Prescriptions: New dextromethorphan-guaifenesin [Mucinex DM] 60-1,200 mg tablet extended release 12 hr 1 tablet PO Q12H Qty: 12 0RF methylprednisolone [Medrol (Deniz)] 4 mg tablets,dose pack See Rx Instructions .ROUTE .COMPLEX Qty: 21 0RF Rx Instructions: orally per package directions Follow-up/Referrals: PHYSICIAN,DESULFURIZER MACHINE [Primary Care Provider] - Time of Disposition: 14:59
[2024-09-17 14:45] LABS: EDCOVIDSCREEN Negative (Negative); EDINFLUASCREEN Negative (Negative); EDINFLUBSCREEN Negative (Negative)
== END 2024-09-17 15:10 | disposition home or self-care (01) ==
PROVIDERS: Emergency Provider Nurse Practitioner
DX: J40 Bronchitis, not specified as acute or chronic (principal); Z20.822 Contact with and (suspected) exposure to COVID-19
CPT/HCPCS: 87426; 87804; 99213; G0463

== ENCOUNTER 2025-02-20 13:43 | Emergency (ER) | payer OTHER, SELFPAY ==
--- NOTE | ~2025-02-20 | CT_ITS ---
History: Fall PROCEDURE: CT cervical spine without intravenous contrast. COMPARISON: None TECHNIQUE: Multiple contiguous axial images of the cervical spine were performed without the administration of i ntravenous contrast. DLP: 459 mGy-cm FINDINGS: Straightening and slight reversal of the normal curvature of the cervical spine is identified, likely muscular in origin. No acute fractures are present. The bilateral lung apices are unremarkable. No soft tissue abnormality is present. The airway is unremarkable. Impression: Straightening and slight reversal of the normal curvature of the cervical spine, likely muscular in o rigin. No acute fracture. Reviewed, dictated and finalized at location A. Impression: Straightening and slight reversal of the normal curvature of the cervical spine , likely muscular in origin. No acute fracture.
--- NOTE | ~2025-02-20 | XR_ITS ---
EXAM/ PROCEDURE: XR tibia fibula LT 2V - 02/20/2025 14:30 CDT HISTORY: 24 years old Female with fall COMPARISON: None available TECHNIQUE: Two view(s) FINDINGS/ IMPRESSION: There are no fractures or dislocations.Joint spaces are within normal limits. Reviewed, dictated and finalized at location A.
--- NOTE | ~2025-02-20 | XR_ITS ---
HISTORY: fall COMPARISON: None TECHNIQUE: 3 views of the left shoulder were performed FINDINGS: No acute fracture. The glenohumeral and acromioclavicular joint space is maintained The visualized portion of the adjacent left lung is clear. The humeral head is well seated within the glenoid fossa. IMPRESSION: No acute fracture or anterior dislocation. Reviewed, dictated and finalized at location A.
--- NOTE | ~2025-02-20 | CT_ITS ---
History: Fall PROCEDURE: CT head without contrast. COMPARISON: None TECHNIQUE: Axial imaging of the head performed from the skull base to the vertex without IV contrast. Sagittal a nd coronal reformations obtained. DLP: 757 mGy-cm FINDINGS: The ventricles are normal in size, shape and position. There is no mass, mass effect or midline shift. There is no abnormal extra-axial fluid collection or intracranial hemorrhage. Visualized paranasal sinuses are clear. The mastoid air cells are well aerated. No acute displaced fractures within the overlying cranium. Impression: No acute intracranial hemorrhage or suspicious mass effect. Reviewed, dictated and finalized at location A. Impression: No acute intracranial hemorrhage or suspicious mass effect.
[2025-02-20 13:52] VITALS: BP 137/63; PULSE 66; RESP 16; TEMP 36.4; O2SAT 100
--- NOTE | 2025-02-20 14:09 | ED.FALL ---
HPI - Fall General Chief Complaint: Fall Stated Complaint: fall, entire left side pain, landed on L side Time Seen by Provider: 02/20/25 16:10 Focused HPI: 24-year-old female presents to the emergency department for a ground level mechanical fall that occurred this morning. Patient states she stepped into the shower and slipped and fell. She is uncertain if she hit her head and uncertain if she lost consciousness. States she cannot recall the entirety of the fall and is worried she may have lost consciousness. She is not anticoagulated. She is reporting pain to the back of her head and neck, left shoulder and left tib-fib. GENERAL: Well-appearing, well-nourished, and in no acute distress. HEAD: Normocephalic, atraumatic. NECK: Mild midline cervical spinous tenderness without crepitus, step-offs or deformities. BACK: No midline thoracolumbar spinous tenderness, crepitus, step-offs or deformities CHEST: Clear to auscultation. ?No respiratory distress. No tenderness to chest wall EXT: Tenderness to the acromioclavicular joint and anterior aspect of the left shoulder with no obvious deformity, full range of motion of shoulder, no edema, no ecchymosis. No tenderness remainder of extremity. Radial pulse 2 +. Sensation intact throughout. Tenderness and mild ecchymosis to the distal left tibia with no obvious deformity. No tenderness remainder of extremity. DP pulses 2+. Sensation intact. HEART: Regular rate and rhythm.? NEURO: ?Alert and oriented x3. Patient screened in triage and initial orders placed.? ?Additional care and disposition to be based upon?diagnostic testing and treatment. Related Data Allergies Allergy/AdvReac Type Severity Reaction Status Date / Time amoxicillin (From Augmentin) Allergy Mild Rash Verified 02/20/25 13:53 clavulanic acid (From Allergy Mild Rash Verified 02/20/25 13:53 Augmentin) [facility] Past Medical History Medical History No pertinent past medical history Surgical History Surgical History No pertinent past surgical history Family History Family History Mother Diabetes mellitus Acute myocardial infarction Grandparent Cerebrovascular accident Other Cancer Hypertension Social History Social History Smoking status: Never smoker Alcohol intake: never Substance use type: does not use Lack of Transportation: No Lack of Food: Never True Current Housing: I Have Housing Concerned About Future Housing: No Difficulty Paying Gas/Electric Bills: No Difficulty Paying for Meds: No Currently Unemployed: No Education: High School Diploma/GED Difficulty w/ Childcare or Family Care: No Living arrangements: with family 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 Signs Vital signs: Vital Signs Temperature 97.6 F 02/20/25 13:52 Pulse Rate 66 02/20/25 13:52 Respiratory Rate 16 02/20/25 13:52 Blood Pressure 137/63 02/20/25 13:52 Pulse Oximetry 100 02/20/25 13:52 Oxygen Delivery Room Air 02/20/25 13:52 Temperature 97.4 F L 02/20/25 15:41 Pulse Rate 63 02/20/25 15:41 Respiratory Rate 18 02/20/25 15:41 Blood Pressure 110/54 L 02/20/25 15:41 Pulse Oximetry 99 02/20/25 15:41 Oxygen Delivery Room Air 02/20/25 13:52 Discharge Plan Discharge Clinical Impression: Contusion, Cervical muscle strain Patient Disposition: Home Condition: Stable Instructions: Antibiotic Form, Muscle Strain (ED), Head Injury (ED), Contusion in Adults (ED) Patient Language: Bangladeshi Prescriptions: New naproxen [Naprosyn] 500 mg tablet 500 mg PO BID Qty: 20 0RF methocarbamol 500 mg tablet 500 mg PO TID Qty: 30 0RF No Action dextromethorphan-guaifenesin [Mucinex DM] 60-1,200 mg tablet extended release 12 hr 1 tablet PO Q12H Qty: 12 0RF methylprednisolone [Medrol (Deniz)] 4 mg tablets,dose pack See Rx Instructions .ROUTE .COMPLEX Qty: 21 0RF Rx Instructions: orally per package directions Follow-up/Referrals: PHYSICIAN,DOCUMENTATION COORDINATOR [Primary Care Provider] -
[2025-02-20 15:41] VITALS: BP 110/54; PULSE 63; RESP 18; TEMP 36.3; O2SAT 99
--- NOTE | 2025-02-20 16:26 | ED.FALL ---
HPI - Fall General Chief Complaint: Fall Stated Complaint: fall, entire left side pain, landed on L side Time Seen by Provider: 02/20/25 16:10 History of Present Illness HPI Narrative: Pt slipped in shower and fell this morning. Pt may have briefly lost consciousness. Pt complains of mild CULP, left shoulder and lateral neck pain, and left euceda pain. Related Data Allergies Allergy/AdvReac Type Severity Reaction Status Date / Time amoxicillin (From Augmentin) Allergy Mild Rash Verified 02/20/25 13:53 clavulanic acid (From Allergy Mild Rash Verified 02/20/25 13:53 Augmentin) Review of Systems Review of Systems: All systems reviewed & are unremarkable except as noted in HPI and below PMFSH Past Medical History Medical History No pertinent past medical history Surgical History Surgical History No pertinent past surgical history Family History Family History Mother Diabetes mellitus Acute myocardial infarction Grandparent Cerebrovascular accident Other Cancer Hypertension Social History Social History Smoking status: Never smoker Alcohol intake: never Substance use type: does not use Lack of Transportation: No Lack of Food: Never True Current Housing: I Have Housing Concerned About Future Housing: No Difficulty Paying Gas/Electric Bills: No Difficulty Paying for Meds: No Currently Unemployed: No Education: High School Diploma/GED Difficulty w/ Childcare or Family Care: No Living arrangements: with family 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 Exam Const: General: healthy appearing and no acute distress Nutritional Appearance: well nourished Orientation/consciousness: patient oriented x3 Limitations: no limitations Eyes: EOM: EOMs intact bilaterally Neck: Other: no midline tenderness, tender with left paraspinous spasm into left trapezius Resp: Effort & Inspection: normal respiratory effort Auscultation: clear to auscultation bilaterally Cardio: Rate: regular rate Rhythm: regular rhythm GI: Auscultation: normal bowel sounds Skin: General skin exam: normal color Rashes: no rashes Wounds: no wounds Neuro: General: patient oriented x3, moves all extremities, no meningeal signs and no focal motor deficits Cranial nerves: Yes Nystagmus not present Speech: normal speech Extrem: Other: contusion to left euceda Psych: Mental Status: mental status grossly normal Affect: normal affect Attitude: cooperative Course Vital Signs Vital signs: Vital Signs Temperature 97.6 F 02/20/25 13:52 Pulse Rate 66 02/20/25 13:52 Respiratory Rate 16 02/20/25 13:52 Blood Pressure 137/63 02/20/25 13:52 Pulse Oximetry 100 02/20/25 13:52 Oxygen Delivery Room Air 02/20/25 13:52 Temperature 97.4 F L 02/20/25 15:41 Pulse Rate 63 02/20/25 15:41 Respiratory Rate 18 02/20/25 15:41 Blood Pressure 110/54 L 02/20/25 15:41 Pulse Oximetry 99 02/20/25 15:41 Oxygen Delivery Room Air 02/20/25 13:52 MDM - Fall MDM Narrative Medical decision making narrative: left shoulder and left tib fib neg for fx, ct brain neg. home on naprosyn and methocarbamol Discharge Plan Discharge Clinical Impression: Contusion, Cervical muscle strain Patient Disposition: Home Condition: Stable Instructions: Antibiotic Form, Muscle Strain (ED), Head Injury (ED), Contusion in Adults (ED) Patient Language: Turkmen Prescriptions: New naproxen [Naprosyn] 500 mg tablet 500 mg PO BID Qty: 20 0RF methocarbamol 500 mg tablet 500 mg PO TID Qty: 30 0RF No Action dextromethorphan-guaifenesin [Mucinex DM] 60-1,200 mg tablet extended release 12 hr 1 tablet PO Q12H Qty: 12 0RF methylprednisolone [Medrol (Deniz)] 4 mg tablets,dose pack See Rx Instructions .ROUTE .COMPLEX Qty: 21 0RF Rx Instructions: orally per package directions Follow-up/Referrals: PHYSICIAN,PARAPROFESSIONAL AIDE [Primary Care Provider] -
== END 2025-02-20 16:55 | disposition home or self-care (01) ==
PROVIDERS: Emergency Provider Emergency Medicine
DX: S16.1XXA Strain of muscle, fascia and tendon at neck level, initial encounter (principal); S80.12XA Contusion of left lower leg, initial encounter; W18.2XXA Fall in (into) shower or empty bathtub, initial encounter
CPT/HCPCS: 70450; 72125; 73030; 73590; 99284